=== PATIENT | female | born 1960 | race Hispanic/Latino ===

== ENCOUNTER 2018-07-21 09:46 | Emergency (ER) | payer BC ==
--- NOTE | 2018-07-21 11:25 | RAD REPORT ---
EXAM DESCRIPTION: CT - [id number] - 07/21/2018 10:41 am CLINICAL HISTORY: Blunt force trauma to the head and neck, headache, neck pain COMPARISON: None. TECHNIQUE: Axial 5 mm thick images of the head were obtained. Axial 2 mm thick images of the cervic al spine were obtained with sagittal and coronal reconstruction images generated and reviewed. All CT scans are performed using dose optimization technique as appropriate and may include automated exposure control or mA/KV adjustment according to patient size. FINDINGS: No intracranial hemorrhage, mass, edema or acute intracranial finding. No suspicion for acute infarct ion. No extra-axial fluid collections. Mastoid air cells and paranasal sinuses are clear. No globe or orbit abnormality seen. Cervical body height and alignment are normal. No disk space narrowing. No fracture or acute bony abn ormality. Minimal degenerative changes are present. No paraspinal mass or hematoma. IMPRESSION: Negative CT head examination for acute or significant finding. Negative CT cervical spine examination for acute or significant finding.
--- NOTE | 2018-07-21 11:55 | ER ---
Nurse's Notes [facility] Name: Sunita Gillis Age: 58 yrs Sex: Female : 1960 Arrival Date: 07/21/2018 Time: 09:49 Bed Treatment Private MD: None, None Diagnosis: Superficial injury of head Presentation: 07/21 10:10 Presenting complaint: Patient states: Heavy door fell onto right parietal area of head aj 40 min [employer]. No LOC but reports dizziness and headache. Patient ambulated to triage with steady gait and appears in NAD. Alert and oriented x 4. Care prior to arrival: None. Mechanism of Injury: blunt trauma. Trauma event details: Injury occurred in the [facility], Injury occurred: in a public building. Injury occurred: July 21, 2018 Injury occurred at: 09:30. 10:10 Acuity: JEREMIAS 4 aj 10:10 Method Of Arrival: Ambulatory aj 12:01 Transition of care: patient was not received from another setting of care. Onset of dw symptoms was July 21, 2018. Risk Assessment: Do you want to hurt yourself or someone else? Patient reports no desire to harm self or others. Initial Sepsis Screen: Does the patient meet any 2 criteria? No. Patient's initial sepsis screen is negative. 12:03 Initial Sepsis Screen: Does the patient have a suspected source of infection? No. dw Patient's initial sepsis screen is negative. Trauma Activation: Not Applicable Physician: ED Physician; Name: ; Notified At: ; Arrived At: Physician: General Surgeon; Name: ; Notified At: ; Arrived At: Physician: Radiology; Name: ; Notified At: ; Arrived At: Physician: Respiratory; Name: ; Notified At: ; Arrived At: Physician: Lab; Name: ; Notified At: ; Arrived At: Historical: - Allergies: 10:13 No Known Allergies; aj - Home Meds: 10:13 None [Active]; aj - PMHx: 10:13 None; aj - PSHx: 10:13 Tubal ligation; aj - Immunization history: Last tetanus immunization: unknown. - Social history:: Smoking status: Patient/guardian denies using tobacco, Patient uses alcohol, weekly. - Ebola Screening: : Patient negative for fever greater than or equal to 101.5 degrees Fahrenheit, and additional compatible Ebola Virus Disease symptoms Patient denies exposure to infectious person Patient denies travel to an Ebola-affected area in the 21 days before illness onset No symptoms or risks identified at this time. Screenin:56 Abuse screen: Denies threats or abuse. Nutritional screening: No deficits noted. dw Tuberculosis screening: No symptoms or risk factors identified. Fall Risk None identified. Primary Survey: 10:10 A: Airway: patent. Breathing/Chest: Respiratory pattern: regular, Respiratory effort: aj spontaneous, unlabored. Circulation: Skin color: pink, Skin temperature: warm, dry. Disability Alert. 11:58 Reassessment Breathing/Chest Respiratory pattern Regular Circulation Heart rhythm Sinus dw rhythm Heart tones Present Pulses Palpable Color [place] Disability Alert. Secondary Survey: 11:58 HEENT: No deficits noted. HEENT: Head Other headache right side of head. : No dw deficits noted. Musculoskeletal: No deficits noted. Injury Description: see triage assessment. Assessment: 10:10 General: Appears in no apparent distress. comfortable, Behavior is calm, cooperative, aj appropriate for age. Pain: Denies pain. Neuro: Level of Consciousness is awake, alert, obeys commands, Oriented to person, place, time, situation, Appropriate for age Miniature Model Maker are equal bilaterally Moves all extremities. Full function Gait is steady, Speech is normal, Facial symmetry appears normal, Pupils are PERRLA, Reports dizziness, headache. Respiratory: Airway is patent Respiratory effort is even, unlabored, Respiratory pattern is regular, symmetrical. Derm: Skin is intact, is healthy with good turgor, Skin is pink, warm \T\ dry. normal. 11:50 Reassessment: Patient appears in no apparent distress at this time. No changes from dw previously documented assessment. Patient is alert, oriented x 3, equal unlabored respirations, skin warm/dry/pink. Pain: Complains of pain in right base of the skull and right occipital area and right temporal area Pain currently is 8 out of 10 on a pain scale. EENT: No deficits noted. No signs and/or symptoms were reported regarding the EENT system. Cardiovascular: No deficits noted. Respiratory: Airway is patent Trachea midline Respiratory effort is even, unlabored, Respiratory pattern is regular, symmetrical, Breath sounds are clear bilaterally. GI: No deficits noted. No signs and/or symptoms were reported involving the gastrointestinal system. : No deficits noted. No signs and/or symptoms were reported regarding the genitourinary system. Derm: Skin is intact, is healthy with good turgor, Skin is dry, Skin is pink, warm \T\ dry. normal, Skin temperature is cool. Musculoskeletal: No signs and/or symptoms reported regarding the musculoskeletal system. Injury Description: see triage assessment. Vital Signs: 10:10 BP 157 / 81; Pulse 70; Resp 18; Temp 98.1; Pulse Ox 100% on R/A; Weight 58.06 kg; aj Height 5 ft. 0 in. (152.40 cm); 11:58 BP 148 / 76; Pulse 52; Resp 20; Temp 97.8; Pulse Ox 100% ; Pain 8/10; dw 10:10 Body Mass Index 25.00 (58.06 kg, 152.40 cm) aj [place] Coma Score: 10:10 Eye Response: spontaneous(4). Verbal Response: oriented(5). Motor Response: obeys aj commands(6). Total: 15. 11:49 Eye Response: spontaneous(4). Verbal Response: oriented(5). Motor Response: obeys dw commands(6). Total: 15. Trauma Score (Adult): 10:10 Eye Response: spontaneous(1); Verbal Response: oriented(1); Motor Response: obeys aj commands(2); Systolic BP: > 89 mm Hg(4); Respiratory Rate: 10 to 29 per min(4); [place] Score: 15; Trauma Score: 12 11:58 Eye Response: spontaneous(1); Verbal Response: oriented(1); Motor Response: obeys dw commands(2); Systolic BP: > 89 mm Hg(4); Respiratory Rate: 10 to 29 per min(4); [place] Score: 15; Trauma Score: 12 ED Course: 09:49 Patient arrived in ED. mr 09:49 None, None is Private Physician. mr 10:12 Triage completed. aj 10:13 Arm band placed on left wrist. Patient placed in waiting room, Patient notified of wait aj time. CT ordered. 10:38 CT completed. Patient moved to CT via wheelchair. Patient moved back from CT. cw1 10:41 Head C Spine Mpr Wo Con In Process Unspecified. EDMS 11:35 Wilmar Quintero PA is PHCP. jmm 11:35 Luis Chakraborty MD is Attending Physician. jmm 11:56 Patient has correct armband on for positive identification. Bed in low position. Call dw light in reach. Adult w/ patient. 11:56 No provider procedures requiring assistance completed. dw 12:01 Patient did not have IV access during this emergency room visit. dw 12:03 Patient maintains SpO2 saturation greater than 95% on room air. dw 12:04 Thermoregulation: warm blanket given to patient. dw Administered Medications: No medications were administered Intake: 12:02 PO: 0ml; IV: 0ml; Total: 0ml. dw Output: 12:02 Urine: 1ml (Voided); Total: 1ml. dw Outcome: 11:54 Discharge ordered by . raoul 11:56 Discharged to home dw 11:56 Discharged to home ambulatory, with family. 11:56 Condition: good 11:56 Discharge instructions given to patient, family, Instructed on discharge instructions, follow up and referral plans. s/s of a concussion, when to come back 12:03 Patient's length of stay was not longer than 2 hours. dw 12:04 Patient left the ED. dw Signatures: Dispatcher [employer] Loulou Jimenez, RN Elina Farnsworth RN RN aj Mickail, Joel, PA PA jmm Rivera, Mary mr Adrian, Trini cw1
--- NOTE | 2018-07-21 11:56 | EDPHYS ---
Physician Documentation [facility] Name: Sunita Gillis Age: 58 yrs Sex: Female : 1960 Arrival Date: 07/21/2018 Time: 09:49 Bed Treatment Private MD: None, None ED Physician Luis Chakraborty HPI: 07/21 11:51 This 58 yrs old Female presents to ER via Ambulatory with complaints of Head jmm Injury Without LOC-Adult. 11:51 The patient or guardian reports injury, pain. The complaints affect the right temporal jmm area, right occipital area and right base of the skull. Onset: The symptoms/episode began/occurred acutely, just prior to arrival. Associated signs and symptoms: Loss of consciousness: This patient did not experience any loss of consciousness. Pertinent positives: headache, headache, Pertinent negatives: vomiting, weakness in extremities, generalized weakness. This is a 58 year old female with no chronic medical conditions that presents to the ED with headache after a freezer door fell on her head. Denies LOC. Historical: - Allergies: 10:13 No Known Allergies; aj - Home Meds: 10:13 None [Active]; aj - PMHx: 10:13 None; aj - PSHx: 10:13 Tubal ligation; aj - Immunization history: Last tetanus immunization: unknown. - Social history:: Smoking status: Patient/guardian denies using tobacco, Patient uses alcohol, weekly. - Ebola Screening: : Patient negative for fever greater than or equal to 101.5 degrees Fahrenheit, and additional compatible Ebola Virus Disease symptoms Patient denies exposure to infectious person Patient denies travel to an Ebola-affected area in the 21 days before illness onset No symptoms or risks identified at this time. ROS: 11:51 Constitutional: Negative for fever, chills, and weight loss, Cardiovascular: Negative jmm for chest pain, palpitations, and edema, Respiratory: Negative for shortness of breath, cough, wheezing, and pleuritic chest pain. 11:51 Neuro: Positive for headache. 11:51 All other systems are negative. Exam: 11:51 Chest/axilla: Normal chest wall appearance and motion. Cardiovascular: Regular rate jmm and rhythm. No edema appreciated Respiratory: Normal respirations, no respiratory distress appreciated Abdomen/GI: Non distended, soft Back: Normal ROM Skin: General appearance color normal MS/ Extremity: Moves all extremities, no obvious deformities appreciated, no edema noted to the lower extremities Neuro: Awake and alert, normal gait Psych: Behavior is normal, Mood is normal, Patient is cooperative and pleasant 11:51 Constitutional: The patient appears in no acute distress, alert, awake. 11:51 Head/face: Exam is negative for kathleen signs, hematoma, raccoon eyes. 11:51 Neck: C-spine: appears grossly normal, no vertebral tenderness, no crepitus, ROM/movement: is normal. Vital Signs: 10:10 BP 157 / 81; Pulse 70; Resp 18; Temp 98.1; Pulse Ox 100% on R/A; Weight 58.06 kg; aj Height 5 ft. 0 in. (152.40 cm); 11:58 BP 148 / 76; Pulse 52; Resp 20; Temp 97.8; Pulse Ox 100% ; Pain 8/10; dw 10:10 Body Mass Index 25.00 (58.06 kg, 152.40 cm) aj [place] Coma Score: 10:10 Eye Response: spontaneous(4). Verbal Response: oriented(5). Motor Response: obeys aj commands(6). Total: 15. 11:49 Eye Response: spontaneous(4). Verbal Response: oriented(5). Motor Response: obeys dw commands(6). Total: 15. Trauma Score (Adult): 10:10 Eye Response: spontaneous(1); Verbal Response: oriented(1); Motor Response: obeys aj commands(2); Systolic BP: > 89 mm Hg(4); Respiratory Rate: 10 to 29 per min(4); [place] Score: 15; Trauma Score: 12 11:58 Eye Response: spontaneous(1); Verbal Response: oriented(1); Motor Response: obeys dw commands(2); Systolic BP: > 89 mm Hg(4); Respiratory Rate: 10 to 29 per min(4); [place] Score: 15; Trauma Score: 12 MDM: 11:51 Patient medically screened. [facility] 11:51 Data reviewed: vital signs, nurses notes. Data interpreted: Pulse oximetry: on room air jmm is 100 %. Interpretation: normal. Counseling: I had a detailed discussion with the patient and/or guardian regarding: the historical points, exam findings, and any diagnostic results supporting the discharge/admit diagnosis, radiology results, the need for outpatient follow up, to return to the emergency department if symptoms worsen or persist or if there are any questions or concerns that arise at home. 11:51 ED course: Patient given head injury return precautions. [facility] 07/21 10:37 Order name: Head C Spine Mpr Wo Con; Complete Time: 11:27 EDMS Administered Medications: No medications were administered Disposition: 17:45 Co-signature as Attending Physician, Luis Chakraborty MD. Disposition: 07/21/18 11:54 Discharged to Home. Impression: Superficial injury of head. - Condition is Stable. - Discharge Instructions: Head Injury, Adult. - Prescriptions for orphenadrine citrate 100 mg Oral Tablet Sustained Release - take 1 tablet by ORAL route 2 times per day As needed; 20 tablet. - Work release form, Medication Reconciliation Form, Thank You Letter, Antibiotic Education, Prescription Opioid Use form. - Follow up: Private Physician; When: 2 - 3 days; Reason: Recheck today's complaints, Continuance of care, Re-evaluation by your physician. Signatures: Dispatcher [employer] [facility] Loulou Tuttle RN RN dw Myers, Amanda, RN RN aj Mickail, Joel, PA PA Luis Hall MD MD Corrections: (The following items were deleted from the chart) 10:37 10:10 Head Brain Wo [id number] ordered. [facility] 12:04 11:54 07/21/2018 11:54 Discharged to Home. Impression: Superficial injury of head. dw Condition is Stable. Forms are Medication Reconciliation Form, Thank You Letter, Antibiotic Education, Prescription Opioid Use. Follow up: Private Physician; When: 2 - 3 days; Reason: Recheck today's complaints, Continuance of care, Re-evaluation by your physician. [facility]
== END 2018-07-21 12:04 | disposition home or self-care (01) ==
LOC: ER 09:46
DX: S00.90XA Unspecified superficial injury of unspecified part of head, initial encounter (principal); W22.8XXA Striking against or struck by other objects, initial encounter; Y93.9 Activity, unspecified; Y92.9 Unspecified place or not applicable
CPT/HCPCS: 70450; 72125; 99284